=== PATIENT | male | born 1990 | race African-American/Black ===

== ENCOUNTER 2021-04-16 15:29 | Emergency (ER) | payer OTHER ==
[~2021-04-16] VITALS: Ht 170.2 cm; Wt 82.7 kg
[2021-04-16 17:38] LABS: TRICYCLIC ANTIDEPRESS URINE NEGATIVE
[2021-04-16 18:17] VITALS: BP 128/71; PULSE 79; TEMP 97
== END 2021-04-16 18:18 | disposition home or self-care (01) ==
LOC: COL.ER 15:29
PROVIDERS: Physician Assistant
DX: Z02.89 Encounter for other administrative examinations (principal); Z20.822 Contact with and (suspected) exposure to COVID-19

== ENCOUNTER 2021-07-28 10:52 | Emergency (ER) | payer OTHER ==
[~2021-07-28] VITALS: Ht 170.2 cm; Wt 79.5 kg
[2021-07-28 10:58] VITALS: BP 145/87; TEMP 98.3
[2021-07-28 11:16] LABS: COLLECTION METHOD CLEAN CATCH
[2021-07-28 11:25] LABS: MUCOUS Present (NOT PRESENT); PH 7 (5-8); SQUAMOUS EPITHELIAL None Seen /hpf (0-10); URINE APPEARANCE Clear (CLEAR/HAZY); URINE BACTERIA None Seen /hpf (NONE SEEN); URINE BILIRUBIN Negative (NEGATIVE); URINE BLOOD Negative (NEGATIVE); URINE COLOR Yellow (YELLOW); URINE GLUCOSE Negative (NEGATIVE); URINE KETONE Negative (NEGATIVE); URINE LEUKOCYTE ESTERASE Negative (NEGATIVE); URINE NITRATE Negative (NEGATIVE); URINE PROTEIN(semi-quant) Negative (NEGATIVE); URINE RBC 0-2 /hpf (0-2); URINE UROBILINOGEN Negative (NEGATIVE)
[2021-07-28 11:50] VITALS: PULSE 67
== END 2021-07-28 11:50 | disposition home or self-care (01) ==
LOC: COL.ER 10:52
PROVIDERS: Nurse Practitioner Family
DX: A64 Unspecified sexually transmitted disease (principal)
CPT/HCPCS: J0696